=== PATIENT | male | born 1960 ===

== ENCOUNTER 2023-07-09 08:33 | Outpatient (RCR) | payer OTHER, SELFPAY | END 2023-09-24 13:27 | disposition home or self-care (01) | PROVIDERS: PCP Family Medicine; Visit Provider Podiatrist | DX: M67.88 Other specified disorders of synovium and tendon, other site (principal); M65.28 Calcific tendinitis, other site; M77.31 Calcaneal spur, right foot; M62.89 Other specified disorders of muscle; Z51.89 Encounter for other specified aftercare | CPT/HCPCS: 97161 ==